=== PATIENT | female | born 1955 | race Caucasian/White ===

== ENCOUNTER → 2017-11-01 | Outpatient (CLI) | payer BC | LOC: MC.RAD 06:57 | DX: Z12.31 Encounter for screening mammogram for malignant neoplasm of breast (principal) ==

== ENCOUNTER → 2018-11-04 | Outpatient (CLI) | payer BC | LOC: MC.RAD 07:00 | DX: Z12.31 Encounter for screening mammogram for malignant neoplasm of breast (principal) ==

== ENCOUNTER → 2019-11-06 | Outpatient (CLI) | payer BC | LOC: MC.RAD 07:02 | DX: Z12.31 Encounter for screening mammogram for malignant neoplasm of breast (principal) ==

== ENCOUNTER → 2020-12-06 | Outpatient (CLI) | payer BC | LOC: MC.RAD 07:00 | DX: Z12.31 Encounter for screening mammogram for malignant neoplasm of breast (principal) ==

== ENCOUNTER 2021-03-17 12:44 | Outpatient (CLI) | payer BC ==
[2021-03-17] VITALS (8 sets, daily range): BP systolic 110–128; BP diastolic 60–74; PULSE 79–92; TEMP 97.5
== END 2021-03-17 15:10 | disposition home or self-care (01) ==
LOC: EUO 12:44
DX: U07.1 COVID-19 (principal)
CPT/HCPCS: M0245

== ENCOUNTER 2023-12-13 10:02 | Emergency (ER) | payer BC ==
[~2023-12-13] VITALS: Ht 175.3 cm; Wt 84.1 kg
[2023-12-13 10:10] VITALS: TEMP 98
[2023-12-13] MEDS ORDERED: NS 1,000 ML IV ONE (10:45)
[2023-12-13 10:48] LABS: BASO % 0.5 % (0.0-2.0); GRAN # 6.1 K/mm3 (1.4-6.5); GRAN % 75.8 % (42.2-75.2); HEMATOCRIT 43.1 % (37.0-47.0); HEMOGLOBIN 14.6 g/dl (12.5-16.0); LYMPH # 1.6 K/mm3 (1.2-3.4); LYMPH % 19.4 % (20.0-51.0); MEAN CELL VOLUME 92 fl (80.0-100.0); MEAN CORPUSCULAR HEMOGLOBIN 31 pg (27-31); MEAN CORPUSCULAR HGB CONC 34 g/dl (33.0-37.0); MEAN PLATELET VOLUME 9.9 fl (7.4-10.4); MONO # 0.3 K/mm3 (0.1-0.6); PLATELET COUNT 404 K/mm3 (130-400); RED BLOOD COUNT 4.71 M/mm3 (4.10-5.30); REDCELL DISTRIBUTION WIDTH-CV 13.1 % (11.5-14.5)
[2023-12-13 11:02] LABS: ALANINE AMINOTRANSFERASE 27 U/L (0-55); ALKALINE PHOSPHATASE 71 U/L (40-150); ANION GAP 12 mmol/L (7-16); AST,SGOT 18 U/L (5-34); BILIRUBIN,TOTAL 0.4 mg/dL (0.2-1.2); BLOOD UREA NITROGEN 11 mg/dL (10-20); CALCIUM 8.5 mg/dL (8.4-10.2); CHLORIDE 103 mEq/L (98-107); CREATININE, serum 0.75 mg/dL (0.57-1.11); GLUCOSE 123 mg/dL (70-99); POTASSIUM 3.9 mEq/L (3.5-4.5); SODIUM 135 mEq/L (136-145); TOTAL PROTEIN 7.2 g/dl (6.2-8.1)
[2023-12-13 11:11] LABS: TROPONIN-I < 0.010 ng/mL (0.00-0.033)
[2023-12-13] MEDS ORDERED: NS 100 ML IV SCH (11:21)
[2023-12-13] MEDS ORDERED: Iohexol 300 - 100 ML VIAL IV ONE (11:21)
[2023-12-13 11:28] LABS: LIPASE 11 U/L (8-78)
[2023-12-13 12:02] LABS: COLLECTION METHOD CLEAN CATCH
[2023-12-13 12:17] LABS: URINE APPEARANCE CLEAR (CLEAR/HAZY); URINE BLOOD NEGATIVE (NEGATIVE); URINE COLOR YELLOW (YELLOW); URINE GLUCOSE NEGATIVE (NEGATIVE); URINE KETONE NEGATIVE (NEGATIVE); URINE NITRATE NEGATIVE (NEGATIVE); URINE PROTEIN(semi-quant) NEGATIVE (NEGATIVE); URINE UROBILINOGEN 0.2 E.U/dL (0.2-1.0)
[2023-12-13] MEDS ORDERED: REGLAN 10MG10 MG/TAB PO (13:10)
[2023-12-13 13:22] VITALS: BP 137/70; PULSE 82
== END 2023-12-13 13:23 | disposition home or self-care (01) ==
LOC: COL.ER 10:02
PROVIDERS: Personal Emergency Response Attendant
DX: R63.0 Anorexia (principal)
CPT/HCPCS: J7030; Q9967